=== PATIENT | male | born 1990 | race Caucasian/White ===

== ENCOUNTER 2018-12-20 15:09 | Inpatient (IN) | payer BC ==
[~2018-12-20] VITALS: Ht 175.3 cm; Wt 85.7 kg
[2018-12-20] MEDS ORDERED: ONDANSETRON HCL 4MG/2ML INJ IV STA (18:59)
[2018-12-20] MEDS ORDERED: MORPHINE SULFATE 4 MG/ML CPJ (NOT FOR IM USE) IV STA (18:59)
[2018-12-20] MEDS ORDERED: VANCOMYCIN 1 G PREMIX 200 ML IV ONE (19:00)
[2018-12-20] MEDS ORDERED: PIPERACILLIN/TAZ 3.375G PREMIX 50 ML IV ONE (19:00)
[2018-12-20] MEDS ORDERED: SODIUM CHLORIDE 0.9% 1000ML BAG (SEPSIS BOLUS) IV ONE (19:00)
[2018-12-20 19:23] LABS: HEMATOCRIT. 38.3 % (42.0-52.0); HEMOGLOBIN. 12.6 g/dL (14.0-18.0); MEAN CORPUSCULAR HEMOGLOBIN 33.8 pg (28.0-32.0); MEAN CORPUSCULAR VOLUME 102.7 fL (80.0-94.0); MEAN PLATELET VOLUME 8.6 fl (7.4-10.4); PLATELET 228 x1000/uL (130-400); RED BLOOD CELL COUNT 3.73 mill/uL (4.7-6.1); RED CELL DISTRIBUTION WIDTH 13.3 % (11.6-14.6)
[2018-12-20 19:28] LABS: CHLORIDE 105 mEq/L (98-107)
[2018-12-20 19:49] LABS: INR 1.2; PROTHROMBIN TIME 12.2 sec (9.1-11.1)
[2018-12-20 20:46] LABS: PLATELET ESTIMATE NORMAL
[2018-12-20] MEDS ORDERED: KETOROLAC 30MG/ML VIAL IV ONE (21:15)
[2018-12-20] MEDS ORDERED: ALPRAZOLAM 0.5 MG TABLET PO ONE (21:15)
[2018-12-20] MEDS ORDERED: HYDROCODONE/ACETAMINOPHEN 5/325MG TABLET PO PRN (23:45)
[2018-12-20] MEDS ORDERED: ACETAMINOPHEN 650MG SUPP PR PRN (23:45)
[2018-12-20] MEDS ORDERED: MAGNESIUM/ALUMINUM HYDROXIDE/SIMETHICONE 30ML UDC PO PRN (23:45)
[2018-12-20] MEDS ORDERED: NA PHOS,M-B/NA PHOS,DI-BA ENEMA 118ML PR PRN (23:45)
[2018-12-20] MEDS ORDERED: IPRATROPIUM/ALBUTEROL 0.5-3(2.5)MG/3ML NEB INH PRN (23:45)
[2018-12-20] MEDS ORDERED: CEFTRIAXONE 1 G PREMIX 50 ML IV SCH (23:45)
[2018-12-20] MEDS ORDERED: ACETAMINOPHEN 650MG/20.3ML UDC GT PRN (23:45)
[2018-12-20] MEDS ORDERED: DOCUSATE SODIUM 100MG CAPSULE PO PRN (23:45)
[2018-12-20] MEDS ORDERED: CLONIDINE 0.1MG TABLET PO PRN (23:45)
[2018-12-20] MEDS ORDERED: GUAIFENESIN 200MG/10ML SUGAR FREE UDC PO PRN (23:45)
[2018-12-20] MEDS ORDERED: VANCOMYCIN 1 G PREMIX 200 ML IV SCH (23:45)
[2018-12-21] VITALS (8 sets, daily range): BP systolic 81–98; BP diastolic 41–48
[2018-12-21] MEDS: CEFTRIAXONE 1,000 MG in DEXTROSE 5% WATER 50 ML IV SCH (04:05)
[2018-12-21] MEDS: ACETAMINOPHEN 325MG TABLET PO PRN ×2 (04:05→12:58)
[2018-12-21] MEDS: ONDANSETRON HCL 4MG/2ML INJ IV PRN ×3 (04:15→18:54)
[2018-12-21] MEDS: VANCOMYCIN 1 G PREMIX 200 ML IV SCH ×3 (05:29→23:20)
[2018-12-21] MEDS: SODIUM CHLORIDE 0.9% INJ 3ML FLUSH IVF SCH ×3 (05:29→23:19)
[2018-12-21 07:32] LABS: HEMATOCRIT. 32.8 % (42.0-52.0); HEMOGLOBIN. 10.7 g/dL (14.0-18.0); MEAN CORPUSCULAR HEMOGLOBIN 33.5 pg (28.0-32.0); MEAN CORPUSCULAR VOLUME 102.2 fL (80.0-94.0); MEAN PLATELET VOLUME 9.1 fl (7.4-10.4); PLATELET 189 x1000/uL (130-400); RED BLOOD CELL COUNT 3.21 mill/uL (4.7-6.1); RED CELL DISTRIBUTION WIDTH 13.5 % (11.6-14.6)
[2018-12-21 08:01] LABS: CHLORIDE 108 mEq/L (98-107)
[2018-12-21 08:10] LABS: LDL CHOLESTEROL 24 mg/dL (5-100)
[2018-12-21 08:11] LABS: HDL CHOLESTEROL 76 mg/dL (40-59)
[2018-12-21 08:44] LABS: CLARITY URINE CLEAR (CLEAR); COLOR URINE ORANGE (YELLOW); KETONES URINE TRACE (NEGATIVE); LEUKOCYTE ESTERASE URINE TRACE (NEGATIVE); NITRITE URINE POSITIVE (NEGATIVE); OCCULT BLOOD URINE NEGATIVE (NEGATIVE); PH URINE 5.5 (4.5-8.0); PROTEIN URINE 1+ (NEGATIVE)
[2018-12-21] MEDS: ENOXAPARIN 40MG/0.4ML SYR SUBCUT SCH (09:00)
[2018-12-21 09:07] LABS: *BARBITURATES SCREEN URINE NEGATIVE (NEGATIVE); *BENZODIAZEPINES SCREEN URINE PRESUMTIVE POSITIVE (NEGATIVE); *COCAINE SCREEN URINE NEGATIVE (NEGATIVE)
[2018-12-21 09:08] LABS: *AMPHETAMINES SCREEN URINE PRESUMTIVE POSITIVE (NEGATIVE); CANNABINOID URINE SCREEN NEGATIVE (NEGATIVE); METHADONE URINE SCREEN NEGATIVE (NEGATIVE); OPIATES URINE SCREEN NEGATIVE (NEGATIVE); PHENCYCLIDINE URINE SCREEN NEGATIVE (NEGATIVE)
[2018-12-21] MEDS: SODIUM CHLORIDE 0.9% 1,000 ML IV SCH (13:37)
[2018-12-21] MEDS: HYDROCODONE/ACETAMINOPHEN 10/325MG TABLET PO PRN (15:33)
[2018-12-21] MEDS: DOXYCYCLINE HYCLATE 100MG CAPSULE PO SCH (16:03)
[2018-12-21] MEDS ORDERED: TETANUS AND DIPHTHERIA TOX/PF 0.5ML SYR (ADULT) IM ONE (18:00)
[2018-12-21] MEDS ORDERED: SODIUM CHLORIDE 0.9% 500ML IV NR (18:15)
[2018-12-21] MEDS ORDERED: SODIUM CHLORIDE 0.9% 1000ML BAG (SEPSIS BOLUS) IV ONE (18:15)
[2018-12-21 19:40] LABS: PLATELET ESTIMATE NORMAL
[2018-12-21] MEDS ORDERED: ALBUMIN HUMAN 25GM/100ML (25%) IV NR (20:00)
[2018-12-22] VITALS (56 sets, daily range): BP systolic 78–140; BP diastolic 29–78
[2018-12-22] MEDS ORDERED: ALPRAZOLAM 0.25 MG TABLET PO SCH
[2018-12-22] MEDS: ACETAMINOPHEN 325MG TABLET PO PRN (00:21)
[2018-12-22] MEDS: DOXYCYCLINE HYCLATE 100MG CAPSULE PO SCH ×3 (00:48→20:37)
[2018-12-22] MEDS: SODIUM CHLORIDE 0.9% 1,000 ML IV SCH ×3 (04:08→22:58)
[2018-12-22 05:30] LABS: HEMATOCRIT. 30.9 % (42.0-52.0); HEMOGLOBIN. 10.2 g/dL (14.0-18.0); MEAN CORPUSCULAR HEMOGLOBIN 33.8 pg (28.0-32.0); MEAN CORPUSCULAR VOLUME 102.2 fL (80.0-94.0); MEAN PLATELET VOLUME 9.3 fl (7.4-10.4); PLATELET 147 x1000/uL (130-400); RED BLOOD CELL COUNT 3.03 mill/uL (4.7-6.1); RED CELL DISTRIBUTION WIDTH 13.3 % (11.6-14.6)
[2018-12-22 05:54] LABS: CHLORIDE 106 mEq/L (98-107)
[2018-12-22] MEDS ORDERED: NOREPINEPHRINE 8 MG in DEXT 5% WATER 242 ML IV PRN (06:00)
[2018-12-22] MEDS: SODIUM CHLORIDE 0.9% INJ 3ML FLUSH IVF SCH ×3 (06:00→21:43)
[2018-12-22 06:13] LABS: VANCOMYCIN TROUGH 23.9 ug/mL (5.0-10.0)
[2018-12-22] MEDS: VANCOMYCIN 1 G PREMIX 200 ML IV SCH (06:45)
[2018-12-22] MEDS ORDERED: POTASSIUM CHLORIDE 20MEQ TABLET SR PO SCH (08:00)
[2018-12-22] MEDS: HYDROCODONE/ACETAMINOPHEN 10/325MG TABLET PO PRN ×3 (08:40→21:37)
[2018-12-22] MEDS: ONDANSETRON HCL 4MG/2ML INJ IV PRN ×2 (08:42→20:37)
[2018-12-22] MEDS: CEFTRIAXONE 1,000 MG in DEXTROSE 5% WATER 50 ML IV SCH (08:44)
[2018-12-22] MEDS: ENOXAPARIN 40MG/0.4ML SYR SUBCUT SCH (09:00)
[2018-12-22 12:01] LABS: PLATELET ESTIMATE NORMAL
[2018-12-22] MEDS ORDERED: LORAZEPAM 2MG/ML CPJ IV NR (12:30)
[2018-12-22] MEDS: METOCLOPRAMIDE HCL 10MG/2ML VIAL IV PRN (12:50)
[2018-12-22] MEDS ORDERED: CALCIUM GLUCONATE 100MG/ML 10ML VIAL IV NR (13:30)
[2018-12-22] MEDS: DIPHENHYDRAMINE 50MG/ML VIAL IV PRN (15:25)
[2018-12-22] MEDS: VANCOMYCIN 1500MG in DEXTROSE 5% WATER 250ML IV SCH (20:37)
[2018-12-22] MEDS: ZOLPIDEM TARTRATE 5MG TABLET PO PRN (22:58)
[2018-12-23] VITALS (60 sets, daily range): BP systolic 65–131; BP diastolic 24–90
[2018-12-23] MEDS: SODIUM CHLORIDE 0.9% INJ 3ML FLUSH IVF SCH ×3 (05:31→22:05)
[2018-12-23] MEDS: METOCLOPRAMIDE HCL 10MG/2ML VIAL IV PRN ×2 (06:48→14:49)
[2018-12-23] MEDS: HYDROCODONE/ACETAMINOPHEN 10/325MG TABLET PO PRN ×3 (06:48→21:11)
[2018-12-23] MEDS: SODIUM CHLORIDE 0.9% 1,000 ML IV SCH ×3 (07:01→21:57)
[2018-12-23 07:59] LABS: CHLORIDE 112 mEq/L (98-107)
[2018-12-23 08:00] LABS: MEAN CORPUSCULAR HEMOGLOBIN 34.3 pg (28.0-32.0); MEAN CORPUSCULAR VOLUME 102.6 fL (80.0-94.0); MEAN PLATELET VOLUME 8.9 fl (7.4-10.4); PLATELET 131 x1000/uL (130-400); RED BLOOD CELL COUNT 2.63 mill/uL (4.7-6.1); RED CELL DISTRIBUTION WIDTH 13.1 % (11.6-14.6)
[2018-12-23] MEDS: ENOXAPARIN 40MG/0.4ML SYR SUBCUT SCH (09:00)
[2018-12-23 09:30] LABS: PLATELET ESTIMATE NORMAL
[2018-12-23] MEDS: CEFTRIAXONE 1,000 MG in DEXTROSE 5% WATER 50 ML IV SCH (10:14)
[2018-12-23] MEDS: DOXYCYCLINE HYCLATE 100MG CAPSULE PO SCH ×2 (10:14→21:11)
[2018-12-23] MEDS: VANCOMYCIN 1500MG in DEXTROSE 5% WATER 250ML IV SCH ×2 (10:14→21:57)
[2018-12-23] MEDS ORDERED: POTASSIUM CHLORIDE 20MEQ TABLET SR PO NR ×2 (10:15→18:45)
[2018-12-23] MEDS ORDERED: CALCIUM GLUCONATE 1,000 MG in DEXT 5% WATER 90 ML IV NR (11:30)
[2018-12-23] MEDS: ONDANSETRON HCL 4MG/2ML INJ IV PRN ×2 (12:24→21:10)
[2018-12-23] MEDS ORDERED: LORAZEPAM 2MG/ML CPJ IV NR (16:30)
[2018-12-23] MEDS: ZOLPIDEM TARTRATE 5MG TABLET PO PRN (22:02)
[2018-12-23] MEDS: DIPHENHYDRAMINE 50MG/ML VIAL IV PRN (22:59)
[2018-12-23] MEDS: PANTOPRAZOLE 40MG DR TABLET PO SCH (22:59)
[2018-12-23] MEDS: METOCLOPRAMIDE HCL 10MG/2ML VIAL IV SCH (23:08)
[2018-12-24] VITALS: BP 114/72
[2018-12-24] MEDS: HYDROCODONE/ACETAMINOPHEN 10/325MG TABLET PO PRN ×2 (02:06→08:45)
[2018-12-24 04:00] VITALS: BP 116/68
[2018-12-24] MEDS: SODIUM CHLORIDE 0.9% 1,000 ML IV SCH ×2 (04:36→20:58)
[2018-12-24] MEDS: SODIUM CHLORIDE 0.9% INJ 3ML FLUSH IVF SCH ×3 (05:44→21:01)
[2018-12-24] MEDS: PANTOPRAZOLE 40MG DR TABLET PO SCH (06:24)
[2018-12-24] MEDS: METOCLOPRAMIDE HCL 10MG/2ML VIAL IV SCH ×4 (06:24→23:36)
[2018-12-24 07:36] LABS: CHLORIDE 107 mEq/L (98-107)
[2018-12-24 08:00] VITALS: BP 118/71
[2018-12-24] MEDS: CEFTRIAXONE 1,000 MG in DEXTROSE 5% WATER 50 ML IV SCH (08:43)
[2018-12-24] MEDS: DOXYCYCLINE HYCLATE 100MG CAPSULE PO SCH (08:44)
[2018-12-24] MEDS: ENOXAPARIN 40MG/0.4ML SYR SUBCUT SCH (08:46)
[2018-12-24 08:47] LABS: BASOPHILS % 0.4 % (0.0-2.0); EOSINOPHILS % 1.9 % (0.0-5.0); HEMATOCRIT. 27.6 % (42.0-52.0); HEMOGLOBIN. 9.2 g/dL (14.0-18.0); LYMPHOCYTES % 10.3 % (20.0-50.0); MEAN CORPUSCULAR HEMOGLOBIN 33.8 pg (28.0-32.0); MEAN CORPUSCULAR VOLUME 101.5 fL (80.0-94.0); MEAN PLATELET VOLUME 9.9 fl (7.4-10.4); MONOCYTES % 10.4 % (2.0-8.0); PLATELET 146 x1000/uL (130-400); RED BLOOD CELL COUNT 2.72 mill/uL (4.7-6.1); RED CELL DISTRIBUTION WIDTH 13.2 % (11.6-14.6)
[2018-12-24] MEDS: ONDANSETRON HCL 4MG/2ML INJ IV PRN ×4 (08:59→21:53)
[2018-12-24 09:04] LABS: CHLORIDE 107 mEq/L (98-107)
[2018-12-24] MEDS: VANCOMYCIN 1500MG in DEXTROSE 5% WATER 250ML IV SCH (11:22)
[2018-12-24 12:19] VITALS: BP 123/77
[2018-12-24] MEDS ORDERED: SULF1TAB48 MT (13:38)
[2018-12-24] MEDS ORDERED: AMOX-424 MT (13:38)
[2018-12-24] MEDS ORDERED: PANT40SU MT (13:39)
[2018-12-24] MEDS ORDERED: KETOROLAC 15MG/ML VIAL IV PRN (19:15)
[2018-12-24 20:00] VITALS: BP 119/74
[2018-12-24] MEDS ORDERED: SUMATRIPTAN SUCCINATE 6MG/0.5ML VIAL SUBCUT NR (20:00)
[2018-12-24] MEDS ORDERED: VANCOMYCIN 1 G PREMIX 200 ML IV SCH ×2 (20:00→21:00)
[2018-12-24] MEDS ORDERED: VANCOMYCIN 1,000 MG in DEXT 5% WATER 250 ML IV SCH (20:00)
[2018-12-24] MEDS: FAMOTIDINE 20MG TABLET PO SCH (20:57)
[2018-12-24] MEDS: VANCOMYCIN 1 G PREMIX 200 ML IV SCH (21:03)
[2018-12-24] MEDS ORDERED: LORAZEPAM 1MG TABLET PO PRN (21:30)
[2018-12-24] MEDS: DIPHENHYDRAMINE 50MG/ML VIAL IV PRN (23:41)
[2018-12-25] VITALS: BP 118/77
[2018-12-25 04:00] VITALS: BP 116/73
[2018-12-25] MEDS: SODIUM CHLORIDE 0.9% 1,000 ML IV SCH ×2 (04:46→13:15)
[2018-12-25] MEDS: SODIUM CHLORIDE 0.9% INJ 3ML FLUSH IVF SCH ×2 (05:03→14:46)
[2018-12-25] MEDS: VANCOMYCIN 1 G PREMIX 200 ML IV SCH (05:03)
[2018-12-25] MEDS: METOCLOPRAMIDE HCL 10MG/2ML VIAL IV SCH ×3 (05:30→16:51)
[2018-12-25 08:10] VITALS: BP 126/70
[2018-12-25] MEDS: ENOXAPARIN 40MG/0.4ML SYR SUBCUT SCH (09:00)
[2018-12-25] MEDS: FAMOTIDINE 20MG TABLET PO SCH ×2 (09:16→16:51)
[2018-12-25] MEDS: ACETAMINOPHEN 325MG TABLET PO PRN (09:22)
[2018-12-25 09:47] LABS: EOSINOPHILS % 2.8 % (0.0-5.0); HEMATOCRIT. 28.4 % (42.0-52.0); HEMOGLOBIN. 9.6 g/dL (14.0-18.0); LYMPHOCYTES % 21.1 % (20.0-50.0); MEAN CORPUSCULAR HEMOGLOBIN 34.1 pg (28.0-32.0); MEAN CORPUSCULAR VOLUME 100.9 fL (80.0-94.0); MEAN PLATELET VOLUME 9.2 fl (7.4-10.4); MONOCYTES % 10.8 % (2.0-8.0); NEUTROPHILS % 64.3 % (40.0-76.0); PLATELET 196 x1000/uL (130-400); RED BLOOD CELL COUNT 2.82 mill/uL (4.7-6.1); RED CELL DISTRIBUTION WIDTH 13.6 % (11.6-14.6)
[2018-12-25 09:50] LABS: CHLORIDE 107 mEq/L (98-107)
[2018-12-25] MEDS ORDERED: BARIUM SULFATE 176 GM SUSP.RECON ONE (10:31)
[2018-12-25] MEDS ORDERED: SIMETHICONE/SOD BICARB/CIT AC 1 EACH GRAN.EF.PK ONE (10:31)
[2018-12-25 12:30] VITALS: BP 138/72
[2018-12-25 13:06] LABS: HIV SCREEN 4G Non Reactive (Non Reactive)
[2018-12-25 15:45] VITALS: BP 132/78
[2018-12-25] MEDS ORDERED: VANCOMYCIN 1 G PREMIX 200 ML IV SCH (18:00)
== END 2018-12-25 17:15 | disposition home or self-care (01) | DRG 872 ==
LOC: ER 15:09 → 5WST 21:37 → EDBEDREQTM 21:46 → EDBEDREQ 21:46 → EDBEDREQSVC 21:46 → ENRESERV 22:31 → CVICU 12-22 06:20 → 6WST 12-23 18:21
PROVIDERS: ADMIT Family Medicine; ATTEND Family Medicine
PROC: 05HN33Z Insertion of Infusion Device into Left Internal Jugular Vein, Percutaneous Approach (ICD-10-PCS; principal; 2018-12-22)
PROC: B544ZZA Ultrasonography of Left Jugular Veins, Guidance (ICD-10-PCS; 2018-12-22)
DX: A41.9 Sepsis, unspecified organism (principal); L03.113 Cellulitis of right upper limb; E87.2 Acidosis; E66.9 Obesity, unspecified; D64.9 Anemia, unspecified; F15.10 Other stimulant abuse, uncomplicated; G43.909 Migraine, unspecified, not intractable, without status migrainosus; F19.10 Other psychoactive substance abuse, uncomplicated; Z68.27 Body mass index [BMI] 27.0-27.9, adult
CPT/HCPCS: 36415; 36569; 71045; 73130; 73221; 74018; 74176; 74249; 76937; 80048; 80061; 80076; 80202; 80305; 83605; 84145; 84484; 87389; 90714; 93005; 96365; 96367; 96375; 97162; 99291; C1725; J0610; J0696; J1200; J1650; J2060; J2405; J2543; J2765; J3030; J3370; J3490; J7030; J7040; J7050; J7060; J7517; P9047